=== PATIENT | male | born 1995 | race African-American/Black ===

== ENCOUNTER 2019-12-20 20:41 | Emergency (ER) | payer OTHER, SELFPAY ==
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
[2019-12-20 20:45] VITALS: BP 158/97; PULSE 94; RESP 16; TEMP 36.8; O2SAT 100
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
[2019-12-20] MEDS: IBUPROFEN 400 MG TABLET 800 MG PO (21:34)
--- NOTE | 2019-12-20 21:35 | PC.NURSE ---
pt to xray at this time.
--- NOTE | 2019-12-20 22:06 | PC.NURSE ---
pt updated on status, awaiting results of xray at this time.
[2019-12-20 22:23] VITALS: BP 146/87; PULSE 81; RESP 18; TEMP 36.9; O2SAT 98
== END 2019-12-20 22:43 | disposition home or self-care (01) ==
PROVIDERS: Emergency Provider Emergency Medicine
DX: S10.93XA Contusion of unspecified part of neck, initial encounter (principal); Y00.XXXA Assault by blunt object, initial encounter
CPT/HCPCS: 70360; 99283; A9270